=== PATIENT | female | born 1965 | race Caucasian/White ===

== ENCOUNTER 2022-10-14 11:55 | Outpatient (REF) | payer MEDICAID, SELFPAY ==
[2022-10-14 13:05] LABS: MANUAL DIFF FLAG NO
[2022-10-14 13:22] LABS: Basophils Absolute Auto 0.1 X10*3/uL (0.0-0.2); Basophils Percent Auto 0.7 % (0-2); Eosinophils Absolute Auto 0.1 X10*3/uL (0.0-0.4); Eosinophils Percent Auto 1.4 % (0-4); Hematocrit 39.4 % (37.0-47.0); Hemoglobin 12.7 g/dl (12.0-16.0); Imm Gran Abs Auto 0.03 X10*3/uL (0.00-0.03); Imm Gran Pct Auto 0.4 % (0.0-0.4); Lymphocytes Absolute Auto 2.4 X10*3/uL (1.2-4.9); Lymphocytes Percent Auto 33.2 % (20-40); Mean Corpuscular HGB Conc 32.2 g/dl (31.0-35.0); Mean Corpuscular Hemoglobin 29.8 pg (27.0-33.0); Mean Corpuscular Volume 92.5 fL (80.0-98.0); Mean Platelet Volume 10.9 fL (9.4-12.3); Monocytes Absolute Auto 0.6 X10*3/uL (0.1-1.2); Monocytes Percent Auto 7.8 % (2-11); Neutrophils Absolute Auto 4.2 x10*3/uL (2.0-8.3); Neutrophils Percent Auto 56.5 % (45-73); Platelet Count 260 X10*3/uL (160-400); Red Blood Count 4.26 X10*6/uL (4.20-5.50); Red Cell Distribution Width 13.5 % (11.0-16.0); White Blood Count 7.4 X10*3/uL (4.8-10.8)
[2022-10-14 13:31] LABS: Estimated Average Glucose 100 mg/dL; Hemoglobin A1c % 5.1 %
[2022-10-14 14:05] LABS: Alanine Aminotransferase 11 U/L (0-31); Albumin Level 3.9 g/dL (3.5-5.0); Alkaline Phosphatase 67 U/L (39-117); Anion Gap 11 (12-20); Aspartate Amino Transferase 13 U/L (5-31); Bilirubin Direct < 0.2 mg/dL (0.0-0.5); Bilirubin Total 0.2 mg/dL (0.0-1.0); Blood Urea Nitrogen 12 mg/dL (9-16); Calcium 9.4 mg/dL (8.4-10.2); Carbon Dioxide 31 mmol/L (22-29); Chloride 103 mmol/L (96-108); Cholesterol 190 mg/dL; Estimated Glomerular Filt Rate 60; Glucose Random 75 mg/dL (60-115); HDL Cholesterol 43 mg/dL; LDL Cholesterol Calculated 95 mg/dl; Potassium 4.7 mmol/L (3.3-5.1); Sodium 140 mmol/L (135-145); Total Protein 7.1 g/dL (6.5-8.0); Triglycerides 261 mg/dL
[2022-10-15 05:24] LABS: ~HepC Num1 13.05 S/CO (0.00-0.79); ~Hepatitis C Antibody Reactive (Nonreactive)
[2022-10-15 05:27] LABS: HIV AB/AG Nonreactive (Nonreactive); HIV Num 1 0.06 S/CO (0.00-0.99)
[2022-10-25 10:34] LABS: HCV Log PCR <1.18 NOT DETECTED Log IU/mL (NOT DETECTED); HepC Viral Load <15 NOT DETECTED IU/mL (NOT DETECTED)
== END 2022-10-14 11:56 | disposition home or self-care (01) ==
LOC: HO.HHCL 11:55
PROVIDERS: Visit Provider Internal Medicine
DX: G40.909 Epilepsy, unspecified, not intractable, without status epilepticus (principal)
CPT/HCPCS: 36415; 80048; 80061; 80076; 83036; 84443; 85025; 86803; 87389; 87522

== ENCOUNTER 2023-12-08 16:13 | Emergency (ER) | payer MEDICAID, SELFPAY ==
--- NOTE | ~2023-12-08 | XR_ITS ---
EXAMINATION: XR CHEST CLINICAL INFORMATION: Chest pain. COMPARISON: Chest radiograph 06/14/2018. TECHNIQUE: Frontal view of the chest was obtained. FINDINGS: Normal appearance of the cardiomediastinal silhouette. No focal consolidation, pleural effusion or pneumothorax. No acute osseous findings. Visualized upper abdomen is within normal limits. XR/XR chest 1V IMPRESSION: No acute cardiopulmonary findings. Electronically signed by: eHlga Esteves MD 12/08/2023 06:53 PM EDT
--- NOTE | 2023-12-08 16:17 | ECG_ITS ---
Test Reason : CHEST PAIN Blood Pressure : / mmHG Vent. Rate : 056 BPM Atrial Rate : 056 BPM P-R Int : 136 ms QRS Dur : 072 ms QT Int : 440 ms P-R-T Axes : 014 000 -08 degrees QTc Int : 424 ms Sinus bradycardia Cannot rule out Anterior infarct , age undetermined Abnormal ECG When compared with ECG of 14-JUN-2018 14:21, Nonspecific T wave abnormality now evident in Lateral leads Referred By: Mello Curtis Electronically Signed By:GIOVANNA GIVENS MD
[2023-12-08 16:33] VITALS: BP 108/58; PULSE 55; RESP 18; TEMP 35.9; O2SAT 97; BMI 21.0
--- NOTE | 2023-12-08 16:40 | ED_ITS ---
HPI - Chest Pain General Chief Complaint: Chest Pain Stated Complaint: Chest pain and dizzines x3 weeks Time Seen by Provider: 12/08/23 21:27 Source: family Limitations: no limitations History of Present Illness ED Provider: Keila Mathew PA-C HPI narrative: 58-year-old female presents with chest pain x3 weeks. Pain over left anterior chest and radiates down the arm. Pain worse with movement and palpation of chest wall. Patient denies heavy lifting, trauma, or overuse injury. Denies recent cough cold symptoms or fever. Related Data Allergies Allergy/AdvReac Type Severity Reaction Status Date / Time No Known Allergies Allergy Mild NOT Verified 12/08/23 16:36 APPLICABLE Review of Systems 2 Review of Systems: Yes all other systems are reviewed and are negative Constitutional: Constitutional: Denies fever(s) Cardiovascular: Cardiovascular: Reports chest pain and Denies dyspnea Respiratory: Respiratory: Denies cough and Denies dyspnea Gastrointestinal: Gastrointestinal: Denies abdominal pain, Denies nausea and Denies vomiting PMFSH Past Medical History Attestation statement: The following information was validated with the patient. Social History Social History Smoked in Last 30 Days: No Use of substances other than those prescribed or required for medical reasons: No Advance Directives: No Advance Directives Information Provided: No Physical Exam 2 Vital Signs: Vital Signs: Last Vital Signs Temp 98.5 F 12/08/23 23:00 Pulse 56 12/08/23 23:00 Resp 16 12/08/23 23:00 BP 122/57 L 12/08/23 23:00 Pulse Ox 100 12/08/23 23:00 O2 Del Method Room Air 12/08/23 23:00 BMI result Body Mass Index 21.0 Const: Other: Sleeping soundly in bed, easily woken with verbal stimuli Orientation/consciousness: patient oriented x3 Chest: Other: Tenderness to palpation over left anterior chest wall, no deformity, no ecchymosis or erythema noted Resp: Effort & Inspection: normal respiratory effort Cardio: Other: Normal peripheral perfusion Skin: Other: Warm dry no rash Neuro: General: patient oriented x3, no focal motor deficits and CN's II-XI intact bilaterally Psych: Other: Calm cooperative Course Course Course Narrative: RME: done by NORA Curtis. 58-year-old female sent to the ED for chest pain and dizziness for 3 weeks with left arm neck pain. Patient states, history of [place]. patient is normotensive. Labs EKG ordered. Medical Decision Making Medical Decision Making [facility] Narrative: 58-year-old female presents with chest pain x3 weeks. Pain over left anterior chest and radiates down the arm. Pain worse with movement and palpation of chest wall. Patient denies heavy lifting, trauma, or overuse injury. Denies recent cough cold symptoms or fever. No known underlying medical conditions History: Per patient I have considered the following differential diagnoses: ACS, chest wall strain, costochondritis Plan: This is not ACS, the patient has had symptoms for 3 weeks and it is consistent with chest wall pain/strain, however she does not have a mechanism. Thought about costochondritis, but she has not had preceding viral syndrome no fever. She can Follow up with her primary care provider as needed I have independently reviewed the following tests: Labs: No leukocytosis, not anemic, no electrolyte abnormality, troponin negative EKG: Normal sinus rhythm, rate of 56, no ischemic changes no ectopy Chest x-ray:XR CHEST CLINICAL INFORMATION: Chest pain. COMPARISON: Chest radiograph 06/14/2018. TECHNIQUE: Frontal view of the chest was obtained. FINDINGS: Normal appearance of the cardiomediastinal silhouette. No focal consolidation, pleural effusion or pneumothorax. No acute osseous findings. Visualized upper abdomen is within normal limits. XR/XR chest 1V IMPRESSION: No acute cardiopulmonary findings. Electronically signed by: Helga Esteves MD 12/08/2023 06:53 PM EDT Lab Data 12/08/23 17:37 12/08/23 17:37 Labs: Lab Results 12/08/23 Range/Units 17:37 WBC 9.1 (4.8-10.8) X10*3/uL RBC 4.12 L (4.20-5.50) X10*6/uL Hgb 12.5 (12.0-16.0) g/dl Hct 38.3 (37.0-47.0) % MCV 93.0 (80.0-98.0) fL MCH 30.3 (27.0-33.0) pg MCHC 32.6 (31.0-35.0) g/dl RDW 13.4 (11.0-16.0) % Plt Count 227 (160-400) X10*3/uL MPV 10.4 (9.4-12.3) fL Immature Gran % (Auto) 0.2 (0.0-0.4) % Neut % (Auto) 55.5 (45-73) % Lymph % (Auto) 33.3 (20-40) % [place] % (Auto) 9.0 (2-11) % Eos % (Auto) 1.5 (0-4) % Baso % (Auto) 0.5 (0-2) % Lymph # (Auto) 3.0 (1.2-4.9) X10*3/uL [place] # (Auto) 0.8 (0.1-1.2) X10*3/uL Eos # (Auto) 0.1 (0.0-0.4) X10*3/uL Baso # (Auto) 0.1 (0.0-0.2) X10*3/uL Abs Immat Gran (auto) 0.02 (0.00-0.03) X10*3/uL Absolute Neuts (auto) 5.1 (2.0-8.3) x10*3/uL Absolute Nucleated RBC 0.000 (0.0-0.012) X10*3/uL Nucleated RBC % (auto) 0.0 (0.0-0.2) /100WBC PT 10.4 L (10.9-12.4) SEC INR 0.9 (0.9-1.1) APTT 30.1 (26.0-36.8) SEC Sodium 144 (135-145) mmol/L Potassium 4.4 (3.3-5.1) mmol/L Chloride 105 (96-108) mmol/L Carbon Dioxide 31 H (22-29) mmol/L Anion Gap 12 (12-20) BUN 20 H (9-16) mg/dL Creatinine 1.03 (0.5-1.4) mg/dL Estim Creat Clear Calc 56.4 Estimated GFR 55 Random Glucose 95 (60-115) mg/dL Calcium 9.4 (8.4-10.2) mg/dL Total Bilirubin 0.2 (0.0-1.0) mg/dL AST 13 (5-31) U/L ALT 8 (0-31) U/L Alkaline Phosphatase 57 (39-117) U/L Troponin I High Sens < 2.7 (<3.5-17.0) ng/L B-Natriuretic Peptide 62 (<100) pg/mL Total Protein 6.8 (6.5-8.0) g/dL Albumin 4.0 (3.5-5.0) g/dL Discharge Plan Discharge Clinical Impression: Chest wall pain Patient Disposition: Home, Self-Care Instructions: Chest Wall Pain (ED) Additional Instructions: All of your screening labs including cardiac enzymes were normal, there were no concerning changes on her EKG in your chest x-ray is clear. Your exam is consistent with chest wall pain. See home care instructions. You can use [id number] ibuprofen 600 mg taken every 6 hours with food, alternated with [id number] Tylenol 1000 mg taken every 8 hours. Call your primary care provider for a follow up appointment. Interventions: ED Discharge Assessment Last Done: 12/08/23 23:00 Discharge Date/Time: 12/08/23 23:00 Print Language: Telugu
[2023-12-08 17:41] LABS: MANUAL DIFF FLAG NO
[2023-12-08 17:44] LABS: Basophils Absolute Auto 0.1 X10*3/uL (0.0-0.2); Basophils Percent Auto 0.5 % (0-2); Eosinophils Absolute Auto 0.1 X10*3/uL (0.0-0.4); Eosinophils Percent Auto 1.5 % (0-4); Hematocrit 38.3 % (37.0-47.0); Hemoglobin 12.5 g/dl (12.0-16.0); Imm Gran Abs Auto 0.02 X10*3/uL (0.00-0.03); Imm Gran Pct Auto 0.2 % (0.0-0.4); Lymphocytes Percent Auto 33.3 % (20-40); Mean Corpuscular HGB Conc 32.6 g/dl (31.0-35.0); Mean Corpuscular Hemoglobin 30.3 pg (27.0-33.0); Mean Platelet Volume 10.4 fL (9.4-12.3); Monocytes Absolute Auto 0.8 X10*3/uL (0.1-1.2); Neutrophils Absolute Auto 5.1 x10*3/uL (2.0-8.3); Neutrophils Percent Auto 55.5 % (45-73); Platelet Count 227 X10*3/uL (160-400); Red Blood Count 4.12 X10*6/uL (4.20-5.50); Red Cell Distribution Width 13.4 % (11.0-16.0); White Blood Count 9.1 X10*3/uL (4.8-10.8)
[2023-12-08 17:59] LABS: Alanine Aminotransferase 8 U/L (0-31); Alkaline Phosphatase 57 U/L (39-117); Anion Gap 12 (12-20); Aspartate Amino Transferase 13 U/L (5-31); Bilirubin Total 0.2 mg/dL (0.0-1.0); Blood Urea Nitrogen 20 mg/dL (9-16); Calcium 9.4 mg/dL (8.4-10.2); Carbon Dioxide 31 mmol/L (22-29); Chloride 105 mmol/L (96-108); Creatinine Clr Calc Pharmacy 56.4; Estimated Glomerular Filt Rate 55; Glucose Random 95 mg/dL (60-115); Potassium 4.4 mmol/L (3.3-5.1); Sodium 144 mmol/L (135-145); Total Protein 6.8 g/dL (6.5-8.0)
[2023-12-08 18:01] LABS: INTERNATIONAL NORM RATIO 0.9 (0.9-1.1); Prothrombin Time 10.4 SEC (10.9-12.4)
[2023-12-08 18:03] LABS: Partial Thromboplastin Time 30.1 SEC (26.0-36.8)
[2023-12-08 18:05] LABS: B Type Natriuretic Peptide 62 pg/mL (<100)
[2023-12-08 18:06] LABS: Troponin-I High Sensitivity < 2.7 ng/L (<3.5-17.0)
[2023-12-08 21:30] VITALS: BP 122/57; PULSE 56; RESP 16; TEMP 36.9; O2SAT 100
[2023-12-08 23:00] VITALS: BP 122/57; PULSE 56; RESP 16; TEMP 36.9; O2SAT 100
== END 2023-12-08 23:00 | disposition home or self-care (01) ==
PROVIDERS: Physician Assistant; Emergency Provider Emergency Medicine; PCP Internal Medicine
DX: R07.89 Other chest pain (principal)
CPT/HCPCS: 36415; 71045; 80053; 83880; 84484; 85025; 85610; 85730; 93005; 99283; 99285

== ENCOUNTER → 2023-12-08 16:17 | Outpatient (BNV) | payer MEDICAID, SELFPAY | PROVIDERS: Emergency Provider Emergency Medicine; PCP Internal Medicine; Visit Provider Internal Medicine Cardiovascular Disease | DX: R94.31 Abnormal electrocardiogram [ECG] [EKG] (principal) | CPT/HCPCS: 93010 ==